=== PATIENT | male | born 1950 ===

== ENCOUNTER → 2019-12-16 | Emergency (ER) | payer OTHER ==
[~2019-12-16] VITALS: Ht 167.6 cm; Wt 67.1 kg
[~2019-12-16] MED LIST: ADULT ASPIRIN81 MG; AMLODIPINE BESY10 MG; DOXAZOSIN MESYLA1 GM; GLIPIZIDE XL5 MG; ISOSORBIDE MONO30 M2; LOSARTAN POTASS25 MG; METFORMIN HCL1000 M3; METOPROLOL SUCC25 MG; SIMVASTATIN80 MG
== END | disposition left against medical advice (07) ==
LOC: ER 08:56
DX: Z53.20 Procedure and treatment not carried out because of patient's decision for unspecified reasons (principal)